=== PATIENT | male | born 1965 | race Caucasian/White ===

== ENCOUNTER → 2024-02-14 | Outpatient (CLI) | payer OTHER ==
--- NOTE | 2024-02-14 10:15 | MR ---
EXAMINATION TYPE: MR knee RT wo con DATE OF EXAM: 02/14/2024 COMPARISON: None HISTORY: Rt knee pain TECHNIQUE: Multiplanar, multisequence imaging of the right knee is performed without IV contrast. FINDINGS: There are contusions of the medial femoral condyle but no acute fracture. There is moderate narrowing and chondromalacia of the articular cartilage of the medial compartment w ith hypertrophic spurring indicating moderate osteoarthritis. There is a complex tear of the posterio r horn and body of the medial meniscus there is a small meniscal cyst. There is mild osteoarthritis of the lateral compartment and patellofemoral compartment where there is hypertrophic spurring at the cartilage is well preserved. There is a moderate joint effusion. The lateral meniscus is intact. The lateral collateral ligament and cruciate ligaments are intact. There is a mild strain of the medi al collateral ligament. The quadriceps and patellar tendons are normal.. IMPRESSION: 1. Moderate joint effusion. 2.contusions of the medial femoral condyle. 3 Tear of the posterior horn of the medial meniscus with meniscal cyst. 4. Mild strain of the medial collateral ligament. 5. Tricompartmental osteoarthritis, moderate in the medial compartment and mild in the lateral and pa tellofemoral compartments [facility], , 02/14/2024 10:13 AM
== END | disposition home or self-care (01) ==
LOC: RADMRIMAIN 08:07
PROVIDERS: ATTEND Orthopaedic Surgery